=== PATIENT | female | born 1990 | race Caucasian/White ===

== ENCOUNTER 2023-06-22 18:30 | Emergency (ER) | payer OTHER, SELFPAY ==
[2023-06-22 18:35] VITALS: BP 113/75; PULSE 105; RESP 16; TEMP 37.2; O2SAT 99; BMI 21.8
--- NOTE | 2023-06-22 19:04 | CRLHL7_ITS ---
For Patients: As a result of the Century Cures Act, medical imaging exams and procedure reports are released immediately into your electronic medical record. You may view this report before your referring provider. If you have questions, please contact your health care provider. INDICATION: Show right flank pain. TECHNIQUE: CT abdomen and pelvis without contrast. COMPARISON: None. FINDINGS: Lower chest: Scattered atelectasis. Liver: Normal in size and attenuation. No suspicious masses. Gallbladder and bile ducts: No stones or inflammation. No biliary dilatation. Pancreas: Unremarkable. No mass or inflammation. Spleen: Normal in size. No masses. Adrenal glands: Normal in size. No nodules. Kidneys: Punctate nonobstructing right renal stone. Mild prominence of the right collecting system. No suspicious masses, or hydronephrosis. GI tract: Mild colonic stool burden. Normal in caliber. No sign of mass or inflammation. Normal appendix. Vasculature: Abdominal aorta is normal in caliber. Lymph nodes: No lymphadenopathy. Peritoneum/Abdominal Wall: Unremarkable. No sign of mass or infiltration. No free air or significant free fluid. Pelvis: Unremarkable. No pelvic masses. 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 IMPRESSION: Mild prominence of the right collecting system without definite hydronephrosis or obstructive uropathy. Constellation of findings could suggest recently passed stone. Recommend correlation with clinical history and urinalysis. Additional punctate nonobstructing right renal stone. Mild colonic stool burden. Please note that all CT scans at this facility use dose modulation, iterative reconstruction, and/or weight-based dosing when appropriate to reduce radiation dose to as low as reasonably achievable. Dictated by Ash Sawant MD @ 06/22/2023 8:31:00 PM (Electronically Signed)
--- NOTE | 2023-06-22 19:05 | ED.GENADULT ---
HPI - General Adult General Chief complaint: Flank Pain Stated complaint: potential kidney stone Time Seen by Provider: 06/22/23 18:31 History of Present Illness HPI narrative: This 33-year-old female was at urgent care and was sent here for further evaluation. She use reporting right flank pain and right lower back pain for the past 10 days or so. She states that it is a constant pain in seems to be worse when she has been sitting for a while and attempts to get up and ambulate. She did have a urinalysis done at urgent care which showed no red blood cells per high-powered field but there was a report of 1+ blood. The patient does not have any history of kidney stones and is not aware of any family history of the same. She did receive an intramuscular injection of Toradol which brought significant relief to her symptoms. She does not report any strenuous activity or injury event to trigger symptoms like this. Related Data Home Medications Medication Instructions Recorded Confirmed No Known Home Medications 06/22/23 06/22/23 levothyroxine 75 mcg tablet 75 mcg PO QAM 06/22/23 06/22/23 Allergies Allergy/AdvReac Type Severity Reaction Status Date / Time No Known Drug Allergies Allergy Unverified 06/22/23 18:42 Review of Systems Status of ROS: Reports: 10 or more systems reviewed and unremarkable except as noted in History and below Narrative: Constitutional: No fevers, no weight gain or loss. Eyes: No discharge. No vision changes. HENT: No congestion, no sore throat, no ear pain. Cardiovascular: No chest pain, no palpitations. Respiratory: No shortness of breath, no wheezes, no cough. Gastrointestinal: No vomiting, no diarrhea. Right flank pain does radiate a bit around to her lower abdomen on the right side. Genitourinary: No dysuria, no hematuria. Musculoskeletal: Normal range of motion. Skin: No rashes, no pruritis. Neurological: No dizziness, weakness, sensory change, speech change. Endo/Heme/Allergies: No bruising or bleeding. No polydipsia. Pysch: no suicidality, no anxiety, no insomnia. All other systems reviewed and are negative. Exam Narrative: Exam Narrative: Constitutional: Well-developed, well-nourished, no acute distress. HEENT: Normocephalic, atraumatic. Neck: Normal range of motion. Nontender. Supple. Heart: Regular. No murmurs. Normal rate. Intact distal pulses. Lungs: Clear to auscultation. No chest discomfort. No wheezes, rhonchi, or rales. Abdomen: Normal bowel sounds. Nontender. No rebound tenderness. Genitalia: Deferred. Back: No midline tenderness. Normal range of motion. Pain on the right side of her back from the right flank and down toward the belt line. Extremities: Normal range of motion. No injury. Skin: Intact. No rash. Warm. No erythema or pallor. Neurologic: No altered sensation. No weakness. Alert and oriented. Psychiatric: No suicidality. No anxiety or depression. No insomnia. Nursing notes and vitals signs are reviewed. Const: Vital Signs, click to edit/add: Vital Signs - 24 hr 06/22/23 18:35 Temperature 99 F Pulse Rate [Pulse Oximeter] 105 H Respiratory Rate 16 Blood Pressure [Ri ght Upper Arm] 113/75 Pulse Oximetry 99 Oxygen Delivery Me thod Room Air Course Vital Signs Vital signs: Initial Vital Signs Temperature 99 F 06/22/23 18:35 Temperature Source Temporal Artery Scan 06/22/23 18:35 Pulse Rate 105 H 06/22/23 18:35 Pulse Rhythm Regular 06/22/23 18:35 Pulse Strength 3+ Normal 06/22/23 18:35 Respiratory Rate 16 06/22/23 18:35 Blood Pressure 113/75 06/22/23 18:35 Blood Pressure Mean 87 06/22/23 18:35 Blood Pressure Position Sitting 06/22/23 18:35 Pulse Oximetry 99 06/22/23 18:35 Oxygen Delivery Method Room Air 06/22/23 18:35 Vital Signs Temperature 99 F 06/22/23 18:35 Pulse Rate 105 H 06/22/23 18:35 Respiratory Rate 16 06/22/23 18:35 Blood Pressure 113/75 06/22/23 18:35 Pulse Oximetry 99 06/22/23 18:35 Oxygen Delivery Method Room Air 06/22/23 18:35 Temperature 99 F 06/22/23 18:35 Pulse Rate 105 H 06/22/23 18:35 Respiratory Rate 16 06/22/23 18:35 Blood Pressure 113/75 06/22/23 18:35 Pulse Oximetry 99 06/22/23 18:35 Oxygen Delivery Method Room Air 06/22/23 18:35 Medical Decision Making MDM Narrative Medical decision making narrative: This patient comes in reporting right flank pain down into her right lower back and a bit into her right abdomen. She was sent here for CT imaging with suspicion of possible kidney stone. CT imaging was done and returns with no sign of obstructive calculus but there may be some subtle findings of a stone that has already passed. Additionally there is a punctate lucency in the kidney that appears to be a small stone. The patient did receive an intramuscular injection of Toradol 30 mg at urgent care prior to arrival in this brought about great relief to her symptoms. When I recheck with her she states that she was feeling a little bit of discomfort again in her right flank area. It seems that this could be related to a kidney stone but her description of her symptoms sound more likely related to a musculoskeletal condition. In any event she is okay to return home. I did provide a prescription for Toradol tablets. Imaging Data CT scan - abdomen: Radiologist's impression: Mild prominence of the right collecting system without definite hydronephrosis or obstructive uropathy. Constellation of findings could suggest recently passed stone. Recommend correlation with clinical history and urinalysis. Additional punctate nonobstructing right renal stone. Mild colonic stool burden. Discharge Plan Discharge Clinical Impression: Acute flank pain Patient Disposition: Home, Self-Care Condition: Improved Additional Instructions: Take medication as needed and indicated. Activity as tolerated. Follow up with MD return if worsening. Prescriptions: No Action No Known Home Medications levothyroxine 75 mcg tablet 75 mcg PO QAM Follow Up/Referrals: Leslie Tripathi MD [Staff Physician] - Stand Alone Forms: [employer] Info Instructions
== END 2023-06-22 21:36 | disposition home or self-care (01) ==
PROVIDERS: Emergency Provider Emergency Medicine Emergency Medical Services; PCP Family Medicine
DX: R10.9 Unspecified abdominal pain (principal)
CPT/HCPCS: 74176; 87086; 99284

== ENCOUNTER 2025-10-14 07:31 | Outpatient (CLI) | payer OTHER, SELFPAY ==
[2025-10-14 07:56] LABS: Strep A DNA Probe* DETECTED (Not Detectd)
[2025-10-14 08:13] LABS: PCR FLU A Negative PCR FLU A (Negative); PCR FLU B Negative PCR FLU B (Negative); SARS PCR* Negative SARS-CoV-2 (Negative)
== END 2025-10-14 07:32 | disposition home or self-care (01) ==
PROVIDERS: PCP Family Medicine; Visit Provider Physician Assistant Medical
DX: R50.9 Fever, unspecified (principal)
CPT/HCPCS: 87636; 87651